=== PATIENT | female | born 1995 | race Caucasian/White ===

== ENCOUNTER 2018-05-21 11:44 | Emergency (ER) | payer BC ==
[~2018-05-21] VITALS: Ht 162.6 cm; Wt 54.4 kg
[2018-05-21 11:49] VITALS: Ht 162.6 cm; Wt 54.4 kg
[2018-05-21 13:40] VITALS: BP 109/33
== END 2018-05-21 13:40 | disposition home or self-care (01) ==
LOC: ED 11:44
DX: R10.2 Pelvic and perineal pain (principal)